=== PATIENT | male | born 1975 | race Caucasian/White ===

== ENCOUNTER 2022-12-27 17:38 | Emergency (ER) | payer MEDICAID, SELFPAY ==
[2022-12-27 17:41] VITALS: BP 159/105; PULSE 60; RESP 20; TEMP 36.3; O2SAT 99
--- NOTE | 2022-12-27 17:44 | XRR_ITS ---
PROCEDURE INFORMATION: Exam: XR Right Tibia and Fibula Exam date and time: 12/27/2022 5:46 PM Age: 47 years old Clinical indication: Injury or trauma; Fall; Blunt trauma and fracture, traumatic; Lower leg; Closed fracture; Fibula and tibia; Bone in right fibula fracture not specified; Upper end of tibia; Additional info: Fall, deformity, pain TECHNIQUE: Imaging protocol: Radiologic exam of the right tibia and fibula. Views: 2 views. COMPARISON: No relevant prior studies available. FINDINGS: Bones/joints: Comminuted displaced and intra-articular fracture of the proximal right tibial metaphysis with fracture planes extending into the central aspect of the lateral and medial tibial plateaus. There is a 16 mm step-off in the medial tibial plateau posteriorly. Comminuted fracture of the proximal right fibula. Soft tissues: Normal. XR/XR tibia fibula RT 2V [id number] IMPRESSION: 1. Comminuted displaced and intra-articular fracture of the proximal right tibial metaphysis with fracture planes extending into the central aspect of the lateral and medial tibial plateaus. There is a 16 mm step-off in the medial tibial plateau posteriorly. 2. Comminuted fracture of the proximal right fibula.
--- NOTE | 2022-12-27 17:44 | ECG_ITS ---
[facility] Test Date: 2022-12-27 Pat Name: Aj Quiroz Department: Room: Gender: Male [employer]or: : 1975 Requested By: Reggie Molina Order Number: [id number] Valenzuela MD: Kimberlee Martinez M.D. Measurements Intervals [place] Rate: 59 P: 43 CA: 164 QRS: 62 QRSD: 96 T: 60 QT: 402 QTc: 400 Interpretive Statements SINUS BRADYCARDIA No previous ECG available for comparison Electronically Signed On 12-27-2022 22:31:34 IMPLEMENTATION SERVICES ANALYST by Kimberlee Martinez M.D. [id number]
--- NOTE | 2022-12-27 17:44 | XRR_ITS ---
PROCEDURE INFORMATION: Exam: XR Chest Exam date and time: 12/27/2022 5:46 PM Age: 47 years old Clinical indication: Dyspnea; Additional info: Seizure TECHNIQUE: Imaging protocol: Radiologic exam of the chest. Views: 1 view. COMPARISON: No relevant prior studies available. FINDINGS: Lungs: Unremarkable. No consolidation. Pleural spaces: Unremarkable. No pleural effusion. No pneumothorax. Heart/Mediastinum: Unremarkable. No cardiomegaly. Bones/joints: Unremarkable. XR/XR chest 1V portable [id number] IMPRESSION: No acute findings.
--- NOTE | 2022-12-27 17:47 | W.ED.LOWEXIN ---
HPI - Extremity Injury (Lower) General: Chief Complaint: Extremity Injury, Lower Stated Complaint: RIGHT TIB FIB DEFORMITY Time Seen by Provider: 12/27/22 17:43 History of Present Illness: Patient stepped on off a trailer and ended planing into a hole in felt his right tib-fib buckle. Then he had increased intensity and pain I was area was unable to stand. Patient was given 1 mg of Dilaudid, 70 mg of ketamine for pain relief and the patient had a seizure. Patient was given 5 mg of Versed and then seizure stopped. Per EMS patient has no history of seizures previously. Patient did admit to them drinking approximately a sixpack of alcohol today. Review of Systems General: Reports: ROS unobtainable due to medical condition Physical Exam Const: COMMON NORMALS: no acute distress, average body habitus, healthy appearing and well nourished; limitations (Sedated from EMS medication) HENMT: COMMON NORMALS: normocephalic, atraumatic, external ears normal, Normal external nose present, moist oral mucous membranes and oropharynx normal HEAD & SCALP: normocephalic and atraumatic NOSE: Normal external nose present EXTERNAL EAR: Yes external ears normal Neck/C-Spine: COMMON NORMALS: no JVD Chest: COMMONS NORMALS: normal inspection of the chest and normal palpation of entire chest wall Resp: COMMON NORMALS: normal respiratory effort, No retractions, No use of accessory muscles and clear to auscultation bilaterally AUSCULTATION: clear to auscultation bilaterally Cardio: COMMON NORMALS: no JVD, regular rate, regular rhythm, S1 normal heart sound present, S2 normal heart sound present, No gallops present (Cardio), No clicks present (Cardio), No murmurs present (Cardio) and No rub (Cardio) RATE: regular rate RHYTHM: regular rhythm HEART SOUNDS: S1 normal heart sound present and S2 normal heart sound present GI: COMMON NORMALS: Normal to inspection, nondistended, normoactive bowel sounds present, Soft to palpation, non-tender, No hepatosplenomegaly present and no masses PALPATION: Yes Soft to palpation and Yes No hepatosplenomegaly present Course Vital Signs: Vital signs: Vital Signs Temperature 97.3 F L 12/27/22 17:41 Pulse Rate 87 12/27/22 20:12 Respiratory Rate 19 H 12/27/22 20:12 Blood Pressure 171/110 12/27/22 20:12 Pulse Oximetry 96 12/27/22 20:12 Oxygen Delivery Me thod Room Air 12/27/22 20:12 Oxygen Flow Rate 2 12/27/22 17:41 MDM - Extremity Injury (Lower) Medical Decision Making X-ray showed comminuted displaced intra-articular fracture of the proximal tibial metaphysis extending into the lateral medial tibial plane with a 16 mm step-off. Dr. Coughlin was consulted and thought that this is a fairly complex break and should probably be seen by an orthopedic surgeon which who has vascular consult capabilities. [facility] was consulted their ER is on diversion. [facility] was consulted they accepted and patient be transferred there for further evaluation and treatment. Differential Diagnosis Unlikely ankle sprain and strain, acute internal derangement of knee, fracture of femur, fracture of hip, puncture wound of foot, fracture of toe or ankle fracture Medical Records I reviewed the patient's medical records. Lab Data I reviewed the patient's lab results. 12/27/22 17:57 12/27/22 17:57 Radiology Impressions Chest X-Ray 12/27/22 17:44 IMPRESSION: No acute findings. Tibia/Fibula X-Ray 12/27/22 17:44 IMPRESSION: 1. Comminuted displaced and intra-articular fracture of the proximal right tibial metaphysis with fracture planes extending into the central aspect of the lateral and medial tibial plateaus. There is a 16 mm step-off in the medial tibial plateau posteriorly. 2. Comminuted fracture of the proximal right fibula. Laboratory Results WBC 10.27 10^3/uL (3.29-11.43) 12/27/22 17:57 RBC 4.25 10^6/uL (3.85-5.65) 12/27/22 17:57 Hgb 13.20 g/dL (11.27-16.99) 12/27/22 17:57 Hct 40.1 % (37-53) 12/27/22 17:57 MCV 94.4 fl (82-101) 12/27/22 17:57 MCH 31.1 pg (27-33) 12/27/22 17:57 MCHC 32.9 g/dL (30-55) 12/27/22 17:57 RDW 13.0 % (12.1-15.1) 12/27/22 17:57 Plt Count 298 10^3/cmm (157-399) 12/27/22 17:57 MPV 9.3 fL (7.4-10.4) 12/27/22 17:57 Neut % (Auto) 74.6 % 12/27/22 17:57 Lymph % (Auto) 18.0 % 12/27/22 17:57 Motley % (Auto) 6.5 % 12/27/22 17:57 Eos % (Auto) 0.3 % 12/27/22 17:57 Baso % (Auto) 0.4 % 12/27/22 17:57 Neut # (Auto) 7.66 10^3/uL (1.8-7.7) 12/27/22 17:57 Lymph # (Auto) 1.9 10^3/uL (0.8-4.8) 12/27/22 17:57 Motley # (Auto) 0.7 10^3/uL (0.2-0.9) 12/27/22 17:57 Eos # (Auto) 0.0 10^3/uL (0.0-0.8) 12/27/22 17:57 Baso # (Auto) 0.0 10^3/uL (0.0-0.1) 12/27/22 17:57 Nucleated RBC % (auto) 0 % 12/27/22 17:57 Nucleated RBCs # 0.0 /100WBC 12/27/22 17:57 Sodium 129 mmol/L (136-145) L 12/27/22 17:57 Potassium 3.9 mmol/L (3.5-5.1) 12/27/22 17:57 Chloride 95 mmol/L (98-107) L 12/27/22 17:57 Carbon Dioxide 23 mmol/L (22-29) 12/27/22 17:57 Anion Gap 14.9 (5-19) 12/27/22 17:57 BUN 7 mg/dL (6-20) 12/27/22 17:57 Creatinine 0.7 mg/dL (0.7-1.2) 12/27/22 17:57 GFR Calculation 122.0 mL/min (90-130) 12/27/22 17:57 Glucose 87 mg/dL (65-115) 12/27/22 17:57 Calculated Osmolality 265 mOsm/kg (285-295) L 12/27/22 17:57 Calcium 8.0 mg/dL (8.5-10.5) L 12/27/22 17:57 Magnesium 1.7 mg/dL (1.7-2.3) 12/27/22 17:57 Total Bilirubin 0.3 mg/dL (0.15-1.2) 12/27/22 17:57 AST 92 U/L (0-40) H 12/27/22 17:57 ALT 100 U/L (0-41) H 12/27/22 17:57 Alkaline Phosphatase 69 U/L (40-130) 12/27/22 17:57 Total Protein 6.6 g/dL (6.6-8.7) 12/27/22 17:57 Albumin 4.1 g/dL (3.5-5.2) 12/27/22 17:57 Globulin 2.5 g/dL (1.3-4.6) 12/27/22 17:57 Ethyl Alcohol 243 mg/dL (0-10) H 12/27/22 17:57 All radiology interpretation(s) finalized by discharge EKG Data EKG 1: I personally reviewed and interpreted this EKG as follows: EKG interpretation date: 12/27/22 EKG interpretation time: 17:56 Prior EKG tracings: not available for review Interpretation: EKG showed ventricular rate 59 bpm, WI interval 164, QRS duration 96, QTc of 401, sinus bradycardia, Discharge Plan Discharge Patient Disposition: Xfer Short-Term Hosp Clinical Impression: Seizure Fracture of proximal end of right tibia Qualifiers: Encounter type: initial encounter Fracture type: closed Fracture morphology: other fracture Qualified Code(s): S82.191A - Other fracture of upper end of right tibia, initial encounter for closed fracture Fracture of proximal end of right fibula Qualifiers: Encounter type: initial encounter Fracture type: closed Fracture morphology: other fracture Qualified Code(s): S82.831A - Other fracture of upper and lower end of right fibula, initial encounter for closed fracture Alcohol intoxication Qualifiers: Complication of substance-induced condition: uncomplicated Qualified Code(s): F10.920 - Alcohol use, unspecified with intoxication, uncomplicated Condition: Stable Coding Level of Care Code ED Can Filling Room Sweeper for Flaco Andrews
[2022-12-27 17:54] VITALS: PULSE 72
[2022-12-27 18:23] LABS: Alanine Aminotransferase 100 U/L (0-41); Albumin Level 4.1 g/dL (3.5-5.2); Alcohol Level 243 mg/dL (0-10); Alkaline Phosphatase 69 U/L (40-130); Anion Gap 14.9 (5-19); Aspartate Amino Transferase 92 U/L (0-40); Blood Urea Nitrogen 7 mg/dL (6-20); Carbon Dioxide 23 mmol/L (22-29); Chloride 95 mmol/L (98-107); Globulin 2.5 g/dL (1.3-4.6); Glucose 87 mg/dL (65-115); Magnesium 1.7 mg/dL (1.7-2.3); Osmolality Calculated 265 mOsm/kg (285-295); Potassium 3.9 mmol/L (3.5-5.1); Sodium 129 mmol/L (136-145); Total Bilirubin 0.3 mg/dL (0.15-1.2); Total Protein 6.6 g/dL (6.6-8.7)
[2022-12-27 18:35] LABS: Basophils % 0.4 %; Eosinophils % 0.3 %; Hematocrit 40.1 % (37-53); Lymphocytes # 1.9 10^3/uL (0.8-4.8); Mean Corpuscular HGB Conc 32.9 g/dL (30-55); Mean Corpuscular Hemoglobin 31.1 pg (27-33); Mean Corpuscular Volume 94.4 fl (82-101); Mean Platelet Volume 9.3 fL (7.4-10.4); Monocytes # 0.7 10^3/uL (0.2-0.9); Monocytes % 6.5 %; Neutrophils # 7.66 10^3/uL (1.8-7.7); Neutrophils % 74.6 %; Nucleated Red Blood Cells % 0 %; Platelet Count 298 10^3/cmm (157-399); Red Blood Count 4.25 10^6/uL (3.85-5.65); White Blood Count 10.27 10^3/uL (3.29-11.43)
--- NOTE | 2022-12-27 18:58 | PC.NURSE ---
Report taken from TON Connor
[2022-12-27 19:00] VITALS: BP 172/107; PULSE 89; RESP 16; O2SAT 95
[2022-12-27 20:12] VITALS: BP 171/110; PULSE 87; RESP 19; O2SAT 96
--- NOTE | 2022-12-27 20:19 | PC.NURSE ---
Patient report called to Haydee Anderson RN at [facility]; patient to be accepted by Dr Abimael Mehta. All questions and concerns addressed at time of report.
[2022-12-27 20:34] VITALS: RESP 20
[2022-12-27] MEDS: morphine 4 mg/mL SDV 1 mL IVP (20:34)
--- NOTE | 2022-12-27 21:08 | PC.NURSE ---
Report given to [facility] at bedside. All questions and concerns addressed at time of report. Patient transferred to [facility] with all paperwork and belongings.
== END 2022-12-27 21:35 | disposition short-term general hospital (02) ==
PROVIDERS: Emergency Provider Emergency Medicine
DX: S82.251A Displaced comminuted fracture of shaft of right tibia, initial encounter for closed fracture (principal); S82.451A Displaced comminuted fracture of shaft of right fibula, initial encounter for closed fracture; R56.9 Unspecified convulsions; F10.920 Alcohol use, unspecified with intoxication, uncomplicated; Y90.8 Blood alcohol level of 240 mg/100 ml or more; W18.42XA Slipping, tripping and stumbling without falling due to stepping into hole or opening, initial encounter
CPT/HCPCS: 36415; 71045; 73590; 80053; 80307; 83735; 85025; 93005; 96374; 99285; J2270